=== PATIENT | female | born 1930 | race Caucasian/White ===

== ENCOUNTER 2017-04-05 17:10 | Emergency (ER) | payer MEDICARE ==
[2017-04-05 17:16] VITALS: BP 147/80; PULSE 63; RESP 20; TEMP 98.2; O2SAT 93
[2017-04-05] MEDS ORDERED: CLAR10CA3 PO (17:22)
[2017-04-05] MEDS ORDERED: ESTR0.5T3 PO (17:22)
[2017-04-05] MEDS ORDERED: ROSU5 PO (17:22)
[2017-04-05] MEDS ORDERED: CHOL10008 (17:22)
[2017-04-05] MEDS ORDERED: NEXI40CA PO (17:22)
[2017-04-05] MEDS ORDERED: METO25TA3 PO (17:22)
[2017-04-05] MEDS ORDERED: CITA20TA4 PO (17:22)
--- NOTE | 2017-04-05 18:40 | PD ---
HPI Chief Complaint: Fall Time Seen by Provider: 18:21 Travel History International Travel<30 days: No Contact w/Intl Traveler<30days: No Traveled to known affect area: No History of Present Illness HPI 86-year-old female complains of headache, right forearm pain, right wrist pain , right hand pain and anterior chest wall pain. Patient fell at home today. Patient denies loss of consciousness. Patient states that she hit her right forehead and the right side of the head against an object during the fall. Patient denies any visual change. Patient denies any facial pain. Patient denies any neck pain. Patient complained sharp pain localized around the sternum area. Patient denies any pain radiation. Patient states that she had surgery to the right shoulder in the past and is not new. Patient complains of sharp pain localized to the right elbow right forearm right wrist and right hand. Patient denies any abdominal pain. Patient denies any back pain. Patient denies any focal weakness or numbness of extremity. Patient denies any lower extremity injury. PFSH Past Medical History High Cholesterol: Yes Hypertension: Yes Past Surgical History Hysterectomy: Yes Social History Alcohol Use: No Tobacco Use: No Substance Use: No Allergies-Medications (Allergen,Severity, Reaction): Coded Allergies: Penicillins (Verified Allergy, Unknown, 04/05/17) influenza virus vaccine, specific (Verified Allergy, Unknown, 04/05/17) latex (Verified Allergy, Unknown, 04/05/17) Uncoded Allergies: IVP DYE (Allergy, Unknown, 04/05/17) Reported Meds & Prescriptions Reported Meds & Active Scripts Active Reported Estrace (Estradiol) 0.5 Mg Tab 0.5 Mg PO DAILY Vitamin D3 (Cholecalciferol) 1,000 Unit Cap 1,000 Units DAILY Claritin (Loratadine) 10 Mg Cap 10 Mg PO DAILY Crestor (Rosuvastatin Calcium) 5 Mg Tab 5 Mg PO DAILY Citalopram (Citalopram Hydrobromide) 20 Mg Tab 20 Mg PO DAILY Metoprolol Tartrate 25 Mg Tab 25 Mg PO DAILY Nexium (Esomeprazole DR) 40 Mg Capdr 40 Mg PO DAILY Review of Systems General / Constitutional: No: Fever Eyes: No: Visual changes HENT: Positive: Headaches Cardiovascular: No: Chest Pain or Discomfort Respiratory: No: Shortness of Breath Gastrointestinal: No: Abdominal Pain Genitourinary: No: Dysuria Musculoskeletal: Positive: Pain Skin: No Rash Neurologic: No: Weakness Psychiatric: No: Depression Endocrine: No: Polydipsia Hematologic/Lymphatic: No: Easy Bruising Physical Exam Narrative GENERAL: Well-nourished, well-developed patient. SKIN: Focused skin assessment warm/dry. HEAD: Normocephalic. Mild tenderness on palpation right frontal and right temporal area of the scalp. No soft tissue swelling noted. EYES: No scleral icterus. No injection or drainage. Pupils 1.5 mm equal reactive. NECK: Supple, trachea midline. No JVD or lymphadenopathy. No tenderness on palpation of the neck. CARDIOVASCULAR: Regular rate and rhythm without murmurs, gallops, or rubs. RESPIRATORY: Breath sounds equal bilaterally. No accessory muscle use. GASTROINTESTINAL: Abdomen soft, non-tender, nondistended. MUSCULOSKELETAL: Patient has old deformity of the right shoulder. Full range of motion of the shoulder. Patient has mild tenderness to palpation posterior aspect the right elbow. Ecchymosis swelling tenderness over the right forearm over the ulnar aspect of the right forearm. Ecchymosis swelling tenderness over the ulnar aspect the right wrist and over the fifth metacarpal of the right hand. Full range motion of the fingers. Moderate tenderness on palpation in the sternal area. No ecchymosis noted. No crepitus or deformity noted. Back: No tenderness on palpation of the back. Neurologic exam normal. Data Data Last Documented VS Vital Signs Date Time Temp Pulse Resp B/P (MAP) Pulse Ox O2 Delivery O2 Flow Rate FiO2 04/05/17 17:16 98.2 63 20 147/80 (102) [address] Brain W/O Iv Contrast(Rout) (04/05/17 18:27) Ct Cerv Spine W/O Contrast (04/05/17 18:27) Forearm (2vws) (04/05/17 18:27) Hand, Complete ([id number]) (04/05/17 18:27) Chest, Pa & Lat (04/05/17 18:27) MDM Medical Decision Making Medical Screen Exam Complete: Yes Emergency Medical Condition: Yes Differential Diagnosis Differential diagnosis including head trauma, neck trauma, chest trauma, extremity injury. Narrative Course 86-year-old female with head injury, right arm injury and chest wall injury. Kristopher Goodwin MD Apr 05, 2017 18:40
--- NOTE | 2017-04-05 19:00 | RADRPT ---
EXAM DATE/TIME: 04/05/2017 18:42 [facility] COMPARISON: No previous studies available for comparison. INDICATIONS : Trauma. Fall. RADIATION DOSE: 55.21 CTDIvol (mGy) MEDICAL HISTORY : Hypertension. SURGICAL HISTORY : Hysterectomy. ENCOUNTER: Initial ACUITY: 1 day PAIN SCALE: 5/10 LOCATION: cranial TECHNIQUE: Multiple contiguous axial images were obtained of the head. Using automated exposure control and adj ustment of the mA and/or kV according to patient size, radiation dose was kept as low as reasonably a chievable to obtain optimal diagnostic quality images. DICOM format image data is available electro nically for review and comparison. FINDINGS: CEREBRUM: Mild cerebral atrophy is noted. 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 No evidence of midline shift, mass lesion, hemorrhage or acute infarct ion. No extra-axial fluid collections are seen. POSTERIOR FOSSA: The cerebellum and brainstem are intact. The 4th ventricle is midline. The cerebellopontine angle i s unremarkable. EXTRACRANIAL: The visualized portion of the orbits is intact. SKULL: The calvaria is intact. No evidence of skull fracture. CONCLUSION: 1. Mild cerebral atrophy. 2. 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 3. No acute infarct, acute hemorrhage, mass effect or extra-axial fluid collections. Kilo Kearns MD on April 05, 2017 at 18:54 Board Certified Radiologist. This report was verified electronically.
--- NOTE | 2017-04-05 19:09 | RADRPT ---
EXAM DATE/TIME: 04/05/2017 18:42 [facility] COMPARISON: No previous studies available for comparison. INDICATIONS : Trauma. Fall. RADIATION DOSE: 25.52 CTDIvol (mGy) MEDICAL HISTORY : Hypertension. SURGICAL HISTORY : Hysterectomy. ENCOUNTER: Initial ACUITY: 1 day PAIN SCALE: 5/10 LOCATION: neck TECHNIQUE: Volumetric scanning of the cervical spine was performed. Multiplanar reconstructions in the sagittal, coronal and oblique axial planes were performed. Using automated exposure control and adjustment o f the mA and/or kV according to patient size, radiation dose was kept as low as reasonably achievable to obtain optimal diagnostic quality images. DICOM format image data is available electronically f or review and comparison. FINDINGS: Diffuse cervical spondylosis is noted. There is no acute fracture or prevertebral soft tissue swellin g. There is grade I anterolisthesis of C4 in relation to C3. Moderate bilateral foraminal narrowing a t C2-3, C3-4 and C4-5 and mild bilateral foraminal narrowing at C5-6 and C6-7. Mild chronic compressi on deformity involving T2 is noted. No spinal stenosis is noted. No focal disc herniation is noted. M ild scoliosis of the cervical spine is noted. The bony relationship and alignment between C1 and C2 i s well maintained. CONCLUSION: 1. No acute fracture or prevertebral soft tissue swelling of the cervical spine. 2. Grade I anterolisthesis of C4 in relation to C3. 3. Diffuse cervical spondylosis. 4. Moderate bilateral foraminal narrowing at C2-3, C3-4 and C4-5 as well as mild bilateral foraminal narrowing at C5-6 and C6-7. 5. Mild chronic compression deformity involving T2. 6. Mild scoliosis of the cervical spine. Kilo Kearns MD on April 05, 2017 at 19:01 Board Certified Radiologist. This report was verified electronically.
[2017-04-05] MEDS ORDERED: ACETAMINOPHEN 325 MG TAB PO ONE (19:15)
--- NOTE | 2017-04-05 19:15 | RADRPT ---
EXAM DATE/TIME: 04/05/2017 18:43 [facility] COMPARISON: HAND RIGHT COMPLETE ([id number]), April 05, 2017, 18:43. INDICATIONS : Right distal forearm pain post fall. MEDICAL HISTORY : Hypertension. SURGICAL HISTORY : Hysterectomy. ENCOUNTER: Initial ACUITY: 1 day PAIN SCORE: 9/10 LOCATION: Right upper extremity FINDINGS: There is evidence of an acute fracture involving the right distal radius which involves the articular surface. Chondrocalcinosis is noted in the expected region of the triangular fibrocartilage complex. CONCLUSION: 1. Acute fracture involving the right distal radius which involves the articular surface. 2. 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 Kilo Kearns MD on April 05, 2017 at 19:10 Board Certified Radiologist. This report was verified electronically.
--- NOTE | 2017-04-05 19:19 | RADRPT ---
EXAM DATE/TIME: 04/05/2017 18:43 [facility] COMPARISON: No previous studies available for comparison. INDICATIONS : Right hand pain post fall. MEDICAL HISTORY : Hypertension. SURGICAL HISTORY : Hysterectomy. ENCOUNTER: Initial ACUITY: 1 day PAIN SCORE: 5/10 LOCATION: Right upper extremity FINDINGS: There is an acute fracture involving the right distal radius with involvement of the articular surfac e. Chondrocalcinosis is noted involving the triangular fibrocartilage complex. Osteoporosis of the yossi giovanni of the right hand is noted. Joint space narrowing is noted involving the interphalangeal joints o f right hand as well as the first metacarpophalangeal joint. No significant joint space is noted invo lving the third proximal Interphalangeal joint. CONCLUSION: 1. Acute fracture involving the right distal radius with involvement of the articular surface. 2. 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 3. Joint space narrowing involving the interphalangeal joints and right first metacarpophalangeal naz nt which is most severe involving the third proximal interphalangeal joint. 4. Diffuse osteoporosis. Kilo Kearns MD on April 05, 2017 at 19:14 Board Certified Radiologist. This report was verified electronically.
--- NOTE | 2017-04-05 19:22 | RADRPT ---
EXAM DATE/TIME: 04/05/2017 18:43 [facility] COMPARISON: No previous studies available for comparison. INDICATIONS : Chest pain post fall. MEDICAL HISTORY : Hypertension. SURGICAL HISTORY : Hysterectomy. Right total shoulder replacement ENCOUNTER: Initial ACUITY: 1 day PAIN SCORE: 4/10 LOCATION: Bilateral chest FINDINGS: Scattered discoid atelectasis and/or scarring is noted bilaterally. The heart is mildly prominent. No alveolar consolidation is noted. No pulmonary edema is noted. Degenerative changes and scoliosis of the thoracolumbar spine are noted. CONCLUSION: 1. Mild cardiomegaly. 2. Scattered discoid atelectasis and/or scarring bilaterally. 3. No acute focal infiltrate or pulmonary edema. 4. Degenerative changes and scoliosis of the thoracolumbar spine. Kilo Kearns MD on April 05, 2017 at 19:17 Board Certified Radiologist. This report was verified electronically.
[2017-04-05] MEDS ORDERED: traMADol HCL 50 MG TAB PO ONE (20:00)
[2017-04-05] MEDS ORDERED: TRAM50TA PO (20:37)
--- NOTE | 2017-04-05 20:37 | PD ---
Physical Exam Narrative Patient signed out to me by Dr. Goodwin. Please see his documentation for complete details. Briefly, patient is an 86-year-old female who comes in after she slipped and fell today. She says she was making the bed when she fell forward and hit her head on the dresser. She had pain to the right side of her head as well as the right arm. Exam shows tenderness to palpation of the right wrist. She denies any loss of consciousness. She says she was feeling in her normal state of health prior to the fall. Data Data Last Documented VS Vital Signs Date Time Temp Pulse Resp B/P (MAP) Pulse Ox O2 Delivery O2 Flow Rate FiO2 04/05/17 17:16 98.2 63 20 147/80 (102) [address] Brain W/O Iv Contrast(Rout) (04/05/17 18:27) Ct Cerv Spine W/O Contrast (04/05/17 18:27) Forearm (2vws) (04/05/17 18:27) Hand, Complete ([id number]) (04/05/17 18:27) Chest, Pa & Lat (04/05/17 18:27) Acetaminophen (Tylenol) (04/05/17 19:15) Splint Or Brace Apply/Monitor (04/05/17 19:32) Tramadol (Ultram) (04/05/17 20:00) Ed Discharge Order (04/05/17 20:37) Sling Cradle Arm (04/05/17 ) Fiberglass Sugartong Sp Ad Arm (04/05/17 ) MDM Supervised Visit with SANGEETA: No Narrative Course CT head and C-spine show no acute abnormalities. X-ray of the hand and wrist show a fracture of the distal radius. Sensation intact, good radial pulse. Patient placed in a sugar tong splint. Given tramadol for pain. Advised follow -up with orthopedics as soon as possible. Advised to wear the sling until she sees the orthopedic surgeon. Discharged with a prescription for pain medicine. Advised to be careful as it may make her drowsy. Advised to return anytime for any worsening symptoms. Last 24 hours Impressions Radius/Ulna X-Ray 04/05/17 [id number] Signed Impressions: Service Date/Time: Wednesday, April 05, 2017 18:43 - CONCLUSION: 1. Acute fracture involving the right distal radius which involves the articular surface. 2. 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 Kilo Kearns MD Head CT 04/05/171826 Signed Impressions: Service Date/Time: Wednesday, April 05, 2017 18:42 - CONCLUSION: 1. Mild cerebral atrophy. 2. 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 3. No acute infarct, acute hemorrhage, mass effect or extra-axial fluid collections. Kilo Kearns MD Hand X-Ray 04/05/171826 Signed Impressions: Service Date/Time: Wednesday, April 05, 2017 18:43 - CONCLUSION: 1. Acute fracture involving the right distal radius with involvement of the articular surface. 2. 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 3. Joint space narrowing involving the interphalangeal joints and right first metacarpophalangeal joint which is most severe involving the third proximal interphalangeal joint. 4. Diffuse osteoporosis. Kilo Kearns MD Chest X-Ray 04/05/171826 Signed Impressions: Service Date/Time: Wednesday, April 05, 2017 18:43 - CONCLUSION: 1. Mild cardiomegaly. 2. Scattered discoid atelectasis and/or scarring bilaterally. 3. No acute focal infiltrate or pulmonary edema. 4. Degenerative changes and scoliosis of the thoracolumbar spine. Kilo Kearns MD Cervical Spine CT 04/05/171826 Signed Impressions: Service Date/Time: Wednesday, April 05, 2017 18:42 - CONCLUSION: 1. No acute fracture or prevertebral soft tissue swelling of the cervical spine. 2. Grade I anterolisthesis of C4 in relation to C3. 3. Diffuse cervical spondylosis. 4. Moderate bilateral foraminal narrowing at C2-3, C3-4 and C4-5 as well as mild bilateral foraminal narrowing at C5-6 and C6-7. 5. Mild chronic compression deformity involving T2. 6. Mild scoliosis of the cervical spine. Kilo Kearns MD Diagnosis Primary Impression: Radial fracture Qualified Codes: S52.501A - Unspecified fracture of the lower end of right radius, initial encounter for closed fracture Referrals: uHssein Hilario MD call for appointment Augusto Merritt MD call for appointment Patient Instructions: General Instructions, Wrist Fracture in Adults (ED) Additional Instruction: Wear your splint until you see the orthopedic surgeon. Call for an appointment as soon as possible. Take pain medicine as needed. Apply ice to help with pain and swelling. Return to the ED as needed for any worsening symptoms. Scripts Tramadol (Tramadol) 50 Mg Tab 50 MG PO Q6H Y for PAIN, #10 TAB 0 Refills Prov: Lucretia Leos MD 04/05/17 Disposition: 01 DISCHARGE HOME Condition: Stable Lucretia Leos MD Apr 05, 2017 20:37
== END 2017-04-05 20:51 | disposition home or self-care (01) ==
LOC: PHEFT 17:10
DX: S52.501A Unspecified fracture of the lower end of right radius, initial encounter for closed fracture (principal); S09.90XA Unspecified injury of head, initial encounter; R07.89 Other chest pain; E78.00 Pure hypercholesterolemia, unspecified; I10 Essential (primary) hypertension; W19.XXXA Unspecified fall, initial encounter; Y92.009 Unspecified place in unspecified non-institutional (private) residence as the place of occurrence of the external cause
CPT/HCPCS: 29125; 70450; 71046; 72125; 73090; 73130